=== PATIENT | male | born 1985 | race Hispanic/Latino ===

== ENCOUNTER 2024-02-28 17:37 | Emergency (ER) | payer OTHER ==
[~2024-02-28] VITALS: Ht 175.3 cm; Wt 97.7 kg
[2024-02-28 17:40] VITALS: PULSE 70; RESP 18; TEMP 98.2
[2024-02-28] MEDS ORDERED: LISINOPRIL10 MG PO (18:18)
[2024-02-28] MEDS ORDERED: CYCLOBENZAPRINE5 MG PO (19:12)
[2024-02-28] MEDS: KETOROLAC TROMETHAMINE 30 MG/ML VIAL IV STA (19:19)
[2024-02-28 20:08] VITALS: BP 146/96; PULSE 65; RESP 18; TEMP 98.4; O2SAT 98
== END 2024-02-28 19:20 | disposition home or self-care (01) ==
LOC: FSED 17:42
DX: R10.31 Right lower quadrant pain (principal); M54.50 Low back pain, unspecified; R19.7 Diarrhea, unspecified; M79.18 Myalgia, other site
CPT/HCPCS: 74176; 80048; 81003; 85025; 99284; J1885